=== PATIENT | female | born 1960 | race Two or more races ===

== ENCOUNTER 2018-05-28 23:48 | Emergency (ER) | payer OTHER ==
[~2018-05-28] VITALS: Ht 162.6 cm; Wt 77.1 kg
[~2018-05-28 23:48] MED LIST: AMOX1TAB12 PO; GABAPENTIN600 MG PO; INTESTINEX680 MG PO; SKELAXIN400 MG; SM NATURAL BAL100 MG PO; TYLENOL #3 PO; ULTRAM50 MG PO; WELLBUTRIN XL300 MG
[2018-05-29] MEDS ORDERED: ULTRACET PO (02:21)
== END 2018-05-29 02:13 | disposition home or self-care (01) ==
LOC: ER 23:48
DX: M79.652 Pain in left thigh (principal); R10.2 Pelvic and perineal pain

== ENCOUNTER 2018-08-20 22:48 | Emergency (ER) | payer OTHER ==
[~2018-08-20] VITALS: Ht 162.6 cm; Wt 78.0 kg
[~2018-08-20 22:48] MED LIST changes: +ULTRACET PO
[2018-08-21] MEDS ORDERED: TESSALON PERLE100 MG PO (03:51)
[2018-08-21] MEDS ORDERED: OSEL75CA PO (03:51)
== END 2018-08-21 03:55 | disposition home or self-care (01) ==
LOC: ER 22:48
DX: J09.X2 Influenza due to identified novel influenza A virus with other respiratory manifestations (principal); R50.9 Fever, unspecified

== ENCOUNTER 2019-06-16 20:30 | Emergency (ER) | payer OTHER ==
[~2019-06-16] VITALS: Ht 162.6 cm; Wt 79.4 kg
[~2019-06-16 20:30] MED LIST changes: +OSEL75CA PO; +TESSALON PERLE100 MG PO
[2019-06-16] MEDS ORDERED: ULTRACET PO (22:49)
[2019-06-16] MEDS ORDERED: DELTASONE20 MG PO (22:49)
== END 2019-06-16 23:22 | disposition home or self-care (01) ==
LOC: ER 20:30
DX: M65.871 Other synovitis and tenosynovitis, right ankle and foot (principal)

== ENCOUNTER → 2019-06-23 | Outpatient (CLI) | payer OTHER ==
[~2019-06-23] MED LIST changes: +DELTASONE20 MG PO
== END | disposition home or self-care (01) ==
LOC: MRI 15:16
DX: S92.354D Nondisplaced fracture of fifth metatarsal bone, right foot, subsequent encounter for fracture with routine healing (principal)
CPT/HCPCS: 73718

== ENCOUNTER 2019-08-28 08:24 | Emergency (ER) | payer OTHER ==
[~2019-08-28] VITALS: Ht 162.6 cm; Wt 77.6 kg
== END 2019-08-28 14:39 | disposition home or self-care (01) ==
LOC: ER 08:24
DX: J22 Unspecified acute lower respiratory infection (principal)

== ENCOUNTER 2021-08-09 06:06 | Emergency (ER) | payer OTHER ==
[~2021-08-09] VITALS: Ht 162.6 cm; Wt 79.4 kg
[2021-08-09] MEDS ORDERED: BACIT-POLYMYXI3.5 GM OPHT (08:23)
== END 2021-08-09 08:55 | disposition home or self-care (01) ==
LOC: ER 06:06
DX: H01.001 Unspecified blepharitis right upper eyelid (principal)

== ENCOUNTER 2022-09-01 13:27 | Emergency (ER) | payer OTHER ==
[~2022-09-01] VITALS: Ht 162.6 cm; Wt 79.4 kg
[~2022-09-01 13:27] MED LIST changes: +BACIT-POLYMYXI3.5 GM OPHT
[2022-09-01] MEDS ORDERED: NEURONTIN600 M1 (13:44)
[2022-09-01] MEDS ORDERED: WELLBUTRIN SR150 MG (13:44)
== END 2022-09-01 18:29 | disposition home or self-care (01) ==
LOC: ER 13:27
DX: J45.909 Unspecified asthma, uncomplicated (principal); Z88.6 Allergy status to analgesic agent; Z87.01 Personal history of pneumonia (recurrent)

== ENCOUNTER 2024-03-13 11:19 | Outpatient (CLI) | payer OTHER ==
[~2024-03-13 11:19] MED LIST changes: +CRESTOR5 MG PO; +NEURONTIN600 M1; +WELLBUTRIN SR150 MG
== END 2024-03-13 11:24 | disposition home or self-care (01) ==
LOC: RAD 11:19
PROVIDERS: ATTEND Orthopaedic Surgery
DX: S82.042D Displaced comminuted fracture of left patella, subsequent encounter for closed fracture with routine healing (principal)

== ENCOUNTER 2024-04-10 09:59 | Outpatient (CLI) | payer OTHER | END 2024-04-10 10:06 | disposition home or self-care (01) | LOC: RAD 09:59 | PROVIDERS: ATTEND Orthopaedic Surgery | DX: S82.042D Displaced comminuted fracture of left patella, subsequent encounter for closed fracture with routine healing (principal) ==

== ENCOUNTER 2024-12-24 14:36 | Outpatient (CLI) | payer OTHER | END 2024-12-24 14:42 | disposition home or self-care (01) | LOC: RAD 14:36 | PROVIDERS: ATTEND Orthopaedic Surgery | DX: M25.562 Pain in left knee (principal) ==